=== PATIENT | female | born 1980 | race Caucasian/White ===

== ENCOUNTER 2021-11-08 08:07 | Outpatient (CLI) | payer BC, SELFPAY ==
[2021-11-08 14:19] LABS: Cholesterol* 168 mg/dL (90-199); Glucose* 99 mg/dL (60-115)
[2021-11-08 14:20] LABS: HDL Cholesterol* 58 mg/dL (>=50); LDL Cholesterol Calculated 98 mg/dL (<100); Triglycerides* 61 mg/dL (40-149)
== END 2021-11-08 08:08 | disposition home or self-care (01) ==
PROVIDERS: PCP Family Medicine; Visit Provider Registered Nurse
DX: E78.5 Hyperlipidemia, unspecified (principal); Z13.1 Encounter for screening for diabetes mellitus
CPT/HCPCS: 80061; 82947

== ENCOUNTER 2021-11-08 12:59 | Outpatient (REF) | payer BC, SELFPAY ==
[2021-11-08 14:58] LABS: Hematocrit 37.6 % (33.0-51.0); Hemoglobin* 12.6 gm/dL (12.0-16.0); Mean Corpuscular HGB Conc 34 gm/dL (32-36); Mean Corpuscular Hemoglobin 31 pg (26-34); Mean Corpuscular Volume 92 fL (80-100); Platelet Count* 208 K/uL (140-440); Red Blood Count 4.07 m/uL (4.00-5.20); White Blood Count* 5.42 K/uL (4.50-11.00)
[2021-11-08 15:00] LABS: Slide Review Reflex No
[2021-11-08 16:03] LABS: Albumin* 4.4 g/dL (3.3-5.0); Chloride* 110 mmol/L (96-114); Potassium* 4.1 mmol/L (3.6-5.1); Sodium* 139 mmol/L (135-149)
[2021-11-08 16:05] LABS: Creatinine* 0.5 mg/dL (0.5-1.5); Estimated Glomerular Filt Rate 122 ml/min
[2021-11-08 16:06] LABS: Alanine Aminotransferase* 14 U/L (4-35); Alkaline Phosphatase* 67 U/L (40-150); Aspartate Amino Transferase* 29 U/L (12-35); Bilirubin Total* 0.5 mg/dL (0.1-1.5); Blood Urea Nitrogen* 7 mg/dL (5-24); Calcium* 9.2 mg/dL (8.4-10.6); Carbon Dioxide* 23 mmol/L (20-32); Glucose* 96 mg/dL (60-115); Total Protein* 7.3 g/dL (6.0-8.3)
[2021-11-08 16:20] LABS: Free T4 Free Thyroxine* 1.12 ng/dL (0.70-1.85)
[2021-11-10 21:38] LABS: Total T3 95 ng/dL (80-200)
== END 2021-11-08 13:00 | disposition home or self-care (01) ==
LOC: NPINS 12:59
PROVIDERS: PCP Family Medicine; Visit Provider Family Medicine
DX: R07.2 Precordial pain (principal); E04.2 Nontoxic multinodular goiter
CPT/HCPCS: 80053; 84439; 84443; 84480; 85027

== ENCOUNTER 2022-06-25 10:05 | Outpatient (CLI) | payer BC, SELFPAY | END 2022-06-25 10:06 | disposition home or self-care (01) | LOC: NFLDREF 06-27 04:39 | PROVIDERS: PCP Family Medicine; Referring Provider Family Medicine; Visit Provider Registered Nurse | DX: R10.9 Unspecified abdominal pain (principal) | CPT/HCPCS: 87086 ==

== ENCOUNTER 2022-09-18 15:10 | Outpatient (CLI) | payer BC, SELFPAY ==
--- NOTE | 2022-09-18 15:00 | CRLHL7_ITS ---
For Patients: As a result of the Century Cures Act, medical imaging exams and procedure reports are released immediately into your electronic medical record. You may view this report before your referring provider. If you have questions, please contact your health care provider. BILATERAL SCREENING MAMMOGRAM WITH COMPUTER-AIDED DETECTION AND TOMOSYNTHESIS TECHNIQUE: CC and MLO views were obtained. These mammographic images have been obtained using full-field digital technique. These mammographic images were interpreted with the benefit of computer-aided detection. Breast Tomosynthesis was used in this interpretation. COMPARISON FILM: Baseline. FINDINGS: The breasts are extremely dense, which lowers the sensitivity of mammography IMPRESSION: There is no radiographic evidence for malignancy. ASSESSMENT: BI-RADS Category 1: Negative RECOMMENDATION: Routine screening mammogram in 1 year. A lay language report of this examination will be provided to the patient. Hugh Gordon M.D. Diagnostic Radiologist [email or web address] DIPTI/Dictated by: Hugh Gordon MD @ 09/19/2022 11:44:00 AM (Electronically Signed)
== END 2022-09-18 15:11 | disposition home or self-care (01) ==
LOC: MAMMO 15:11
PROVIDERS: PCP Family Medicine; Visit Provider Registered Nurse
DX: Z12.31 Encounter for screening mammogram for malignant neoplasm of breast (principal); R92.2 Inconclusive mammogram
CPT/HCPCS: 77063; 77067

== ENCOUNTER 2023-09-22 15:50 | Outpatient (CLI) | payer OTHER, SELFPAY ==
--- NOTE | 2023-09-22 15:40 | CRLHL7_ITS ---
For Patients: As a result of the Century Cures Act, medical imaging exams and procedure reports are released immediately into your electronic medical record. You may view this report before your referring provider. If you have questions, please contact your health care provider. BILATERAL SCREENING MAMMOGRAM WITH COMPUTER-AIDED DETECTION AND TOMOSYNTHESIS TECHNIQUE: CC and MLO views were obtained. These mammographic images have been obtained using full-field digital technique. These mammographic images were interpreted with the benefit of computer-aided detection. Breast tomosynthesis was used in this interpretation. COMPARISON FILM: . FINDINGS: The breasts are extremely dense, which lowers the sensitivity of mammography. IMPRESSION: There is no radiographic evidence for malignancy. ASSESSMENT: BI-RADS Category 1: Negative RECOMMENDATION: Routine screening mammogram in 1 year. A lay language report of this examination will be provided to the patient. HUGH PINON M.D. Diagnostic Radiologist [email or web address] Transcribed: 2:[address]/Dictated by: Hugh Pinon MD @ 09/23/2023 1:02:00 PM (Electronically Signed)
--- OUTSIDE RECORDS SUMMARY | 2023-09-22 15:52 | XMS_ITS | Clinical Summary ---
Author Organization [facility] [employer] [facility] Address [place], [place] [address] Care Team Providers Care Market Development Executive Name Role Phone Kerline Acosta MD Primary Care Provider [phone] Allergies Active Allergy Reactions Criticality Noted Date Comments Epinephrine Tachycardia 10/05/2014 Sulfa (Sulfonamide Antibiotics) Medications Medication Sig Dispensed Refills Start Date End Date Status medication order composerIndications :Endometriosis determined by laparoscopy Bio identical progesterone oil for treatment endometrosis 0 10/05/2014 Active ondansetron (ZOFRAN) 4 mg tabletIndications:G eneralized anxiety disorder TAKE 1 TABLET BY MOUTH EVERY 8 HOURS IF NEEDED FOR NAUSEA/VOMITING. 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 20 tablet 03/25/2017 Active sertraline (ZOLOFT) 25 mg tabletIndications:A nxiety Take 1 tablet by mouth every morning. 30 tablet 07/29/2017 Active Active Problems Problem Noted Date Diagnosed Date History of endometriosis 03/06/2021 Pain in pelvis 03/06/2021 Thyroid nodule 03/06/2021 Endometriosis determined by laparoscopy 10/06/19 Overview: 2011 per laparoscopic surgery, Dr. Zepeda Simple phobia 05/29/2009 Generalized anxiety disorder 04/14/2007 Encounters Date Type Department Care Team Description 09/01/2023 1:00 PM CDT Ancillary Procedure [facility] [address] [place] [address] 09/01/2023 Travel 08/27/2023 Transcribe Orders [facility] [address] [place] [id number] Flaca Lugo NP 08/26/2023 Transcribe Orders [facility] [address] [place] [address] Hugh Gordon MD 08/20/2023 8:15 AM CDT Ancillary Procedure [facility] [address] [place] [address] 08/20/2023 Travel 08/17/2023 Transcribe Orders [address] [place] [address] Rosendo Farnsworth MD from Last 3 Months Immunizations Name Administration Dates Next Due Hepatitis B (Peds) 05/17/1997,01/23/1997, 997 MMR 08/05/1995 Td (Age >=7 Years) 06/17/2006,08/31/1996 Tuberculin (PPD) 07/13/1998 Family History Medical History Relation Name Comments Thyroid Disease Brother 3 Graves Diabetes Father Heart Disease Father no heart attac ks, but some type of chest pain Cancer Maternal Grandmother lung Psychiatric illness Mother anxiety Stroke Paternal Grandfather Alzheim ers Relation Name Status Comments Brother 1 Alive Brother 2 Alive Brother 3 Father Alive Maternal Grandmother Mother Alive Paternal Grandfather Sister Alive Social History Tobacco Use Types Packs/Day Years Used Date Smoking Tobacco: Never Smokeless Tobacco: Never Tobacco Cessation:Counseling Given: Yes Alcohol Use Standard Drinks/Week Comments No 0 (1 standard drink = 0.6 oz pur e alcohol) Social Connections Answer Date Recorded Frequency of Communication with Friends and Fami ly Not on file 10/25/2021 Sex and Gender Information Value Date Recorded Sex Assigned at Not on file Gender Identity Not on file Sexual Orientation Not on file Obstetrics History Para Term AB IAB SAB Ectopic Multiple Livin g Live Births 0 0 0 0 0 0 0 0 0 0 Last Filed Vital Signs Vital Sign Reading Time Taken Comments Blood Pressure 105/71 10/25/2021 8:55 AM CDT Pulse 81 10/25/2021 8:55 AM CDT Temperature 36.5 ??C (97.7 ??F) 10/25/2021 8:55 AM CD T Respiratory Rate 16 05/29/2009 11:10 AM CHECK INSPECTOR Oxygen Saturation 100% 10/25/2021 8:55 AM CDT Inhaled Oxygen Concentration - - Weight 56.7 kg (125 lb) 10/25/2021 8:55 AM CDT Height 160 cm (5' 3) 10/25/2021 8:55 AM CDT Body Mass Index 22.14 10/25/2021 8:55 AM CDT Plan of Treatment Health Maintenance Due Date Last Done Comments Tdap 1992 Depression screening for age 12+ 1993 HIV for age 15-65 1996 Hepatitis C screening for age 18-79 12/25/1999 Tetanus booster 06/17/2016 06/17/2006, 08/31/1996 BMI (ht and wt on same day) for age 18+ 10/25/2022 10/25/2021 COVID-19 vaccine series (2022- season) 2022 Influenza for age 9-49 12/06/2023 Pap test for age 21-65 11/28/2024 , 11/28/2021, 08/11/2016, Additional history exists Pneumococcal series for age 6-64 Aged Out No longer eligible based on patient's age to complete this topic Procedures Procedure Name Priority Date/Time Associated Diagnosis Comments US PELVIS COMPLETE TV Routine 09/01/2023 2:21 PM CDT Pelvic and perineal pain US THYROID/PARATHYROID Routine 08/20/2023 8:48 AM CDT Nontoxic single thyroid nodule HPV THIN PREP Routine 11/28/2021 12:00 PM CDT from Last 3 Months or Most Recently Relevant to Health Maintenance Results * US PELVIS COMPLETE TV (09/01/2023 2:21 PM CDT) Anatomical Region Laterality Modality Pelvis, OVARIES, UTERUS Ultrasou nd 09/02/2023 9:32 AM CDT Impressions 09/02/2023 9:32 AM CDT 1 cm fundal leiomyoma is unchanged. Otherwise normal pelvic ultrasound. Dictated by Durga Garcia MD @ 09/02/2023 9:32:46 AM (Electronically Signed) Narrative 09/02/2023 9:32 AM CDT For Patients: ??As a result of the Cures Act, medical imaging exams and procedure reports are released immediately into your electronic medical record. ??You may view this report before your referring provider. ??If you have questions, please contact your health care provider. INDICATION: Pelvic and perineal pain. History of endometriosis. TECHNIQUE: Transvaginal pelvic ultrasound. FINDINGS: Uterus is anteverted and measures 7.1 x 3.6 x 4.1 cm. Normal endometrial stripe thickness of 1 cm. 1 cm leiomyoma in the fundus is unchanged from 08/19/2022. Both ovaries appear normal with normal color and spectral Doppler flow. No adnexal mass or free fluid. Procedure Note Durga Garcia MD - 09/02/2023 For Patients: As a result of the Cures Act, medical imagingexams and procedure reports are released immediately into your electronicmedical record. You may view this report before your referring provider.If you have questions, please contact your health care provider. INDICATION: Pelvic and perineal pain. History of endometriosis. TECHNIQUE: Transvaginal pelvic ultrasound. FINDINGS: Uterus is anteverted and measures 7.1 x 3.6 x 4.1 cm. Normal endometrialstripe thickness of 1 cm. 1 cm leiomyoma in the fundus is unchanged from08/19/2022. Both ovaries appear normal with normal color and spectralDoppler flow. No adnexal mass or free fluid. IMPRESSION: 1 cm fundal leiomyoma is unchanged. Otherwise normal pelvic ultrasound. Dictated by Durga Garcia MD @ 09/02/2023 9:32:46 AM (Electronically Signed) Flaca Lugo NP US * US THYROID/PARATHYROID (08/20/2023 8:48 AM CDT) Anatomical Region Laterality Modality THYROID Ultrasound 08/20/2023 3:42 PM CDT Impressions 08/20/2023 3:42 PM CDT Stable TR 2 nodules left thyroid lobe. Dictated by Hugh Gordon MD @ 08/20/2023 3:42:06 PM (Electronically Signed) Narrative 08/20/2023 3:42 PM CDT For Patients: ??As a result of the Cures Act, medical imaging exams and procedure reports are released immediately into your electronic medical record. ??You may view this report before your referring provider. ??If you have questions, please contact your health care provider. INDICATION: Thyroid nodule COMPARISON: 08/19/2022 TECHNIQUE: Chau scale and color Doppler images were acquired of the thyroid gland. FINDINGS: Mostly cystic nodule left thyroid lobe measures 10 x 8 x 6 millimeters, previously measuring 10 x 7 x 6 millimeters. Additional mostly cystic nodule left thyroid lobe nodule measures 8 x 7 x 6 millimeters, previously measuring 8 x 5 x 5 millimeters. The isthmus measures 1.8 millimeter. The right lobe measures 4.1 x 1.2 x 1.2 cm and the left lobe measures 4.0 x 1.2 x 1.2 cm in size. The color Doppler images demonstrate normal vascularity. There is no evidence of cervical lymphadenopathy or parathyroid mass. Procedure Note Hugh Gordon MD - 08/20/2023 For Patients: As a result of the Cures Act, medical imagingexams and procedure reports are released immediately into your electronicmedical record. You may view this report before your referring provider.If you have questions, please contact your health care provider. INDICATION: Thyroid nodule COMPARISON: 08/19/2022 TECHNIQUE: Chau scale and color Doppler images were acquired of the thyroid gland. FINDINGS: Mostly cystic nodule left thyroid lobe measures 10 x 8 x 6 millimeters,previously measuring 10 x 7 x 6 millimeters. Additional mostly cysticnodule left thyroid lobe nodule measures 8 x 7 x 6 millimeters, previouslymeasuring 8 x 5 x 5 millimeters. The isthmus measures 1.8 millimeter. Theright lobe measures 4.1 x 1.2 x 1.2 cm and the left lobe measures 4.0 x1.2 x 1.2 cm in size. The color Doppler images demonstrate normalvascularity. There is no evidence of cervical lymphadenopathy orparathyroid mass. IMPRESSION: Stable TR 2 nodules left thyroid lobe. Dictated by Hugh Gordon MD @ 08/20/2023 3:42:06 PM (Electronically Signed) Rosendo Farnsworth MD * HPV HIGH RISK (11/28/2021 12:00 PM CDT) TYPE 16 Negative Negative 12/02/2021 1:26 PM CDT [facility] TYPE 18 Negative Negative 12/02/2021 1:26 PM CDT [facility] OTHER HIGH RISK TYPES Negative Negative 12/02/2021 1:26 PM CDT [facility] Other (Cervical) 11/28/2021 12:00 PM CDT 11/28/2021 4:16 PM CDT Narrative [facility] - 12/02/2021 1:26 PM CDT HPV types 16, 18, 31, 33, 35, 39, 45, 51, 52, 56, 58, 59, 66 and 68 DNA were undetectable or below the pre-set threshold. Methodology: Lizette Amber 4800 HPV Test Flaca Lugo AUTOCAD TECHNICIAN MICROBIOLOGY [facility] [address] [place] [address], [place] from Last 3 Months or Most Recently Relevant to Health Maintenance Care Teams Market Development Executive Relationship Specialty Start Date End Date Kerline Acosta MD [address] [place] [address] PCP - General Family Practice 11/08/21
--- OUTSIDE RECORDS SUMMARY | 2023-09-22 15:53 | XMS_ITS | Data Portability ---
Author Organization [place] - [facility], MAIN OFFICE Address [address] [place] [address] Assessment No assessment recorded. Plan of Treatment Reminders Order Date Submit Date Provider Last Modified By Organization Details Last Modified Time Details Appointments None recorded. Lab None recorded. Referral None recorded. Procedures None recorded. Surgeries None recorded. Imaging US, thyroid 2020 021 MATT [facility], [address], [address], [place], [address], 17:43:50 US, pelvis, transabdomi nal + transvagina l 2020 021 [email or web address] [facility], [address], [address], [place], [address], 08:02:44 Medication Orders None recorded. Patient TargetsNo targets recorded. Patient InstructionsNo instructions recorded. Reason for Referral None Reported. Results Created Date Observation Date Name Description Value Unit Range Abnormal Flag LastModifiedBy Organization Detail LastModifiedTime 03/06/20 21 US, thyro id No observ ation record ed. [facility] [address], [place], [address], 03/06/2021 17:48:44 03/15/20 21 US, pelvi s, trans abdom inal + trans vagin al No observ ation record ed. [email or web address] [facility] [address], [place], [address], 03/15/2021 09:05:30 04/29/19 22 04/29/2021 US, pelvi s, trans abdom inal + trans vagin al No observ ation record ed. Not Available 2 08:10:34 04/29/19 22 04/29/2021 US, pelvi s, trans abdom inal + trans vagin al No observ ation record ed. [email or web address] Not Available 2 08:10:34 Result Notes None recorded. Problems Name Status Onset Date Resolution Date Notes Provider Name and Address Organization Details Recorded Time Endometritis Completed 012 03/06/2021 Viktor Jain MD [address], [place], [address] , [facility] 03/06/2021 15:22:47 History of endometriosis Active 021 Viktor Jain MD [address], [place], [address] , [facility] 03/06/2021 15:22:58 Pain in pelvis Active 021 Viktor Jain MD [address], [place], [address] , [facility] 03/06/2021 15:25:21 Thyroid nodule Active 021 Viktor Jain MD [address], [place], [address] , [facility] 03/06/2021 15:26:07 Problem Notes None recorded. Procedures Surgical History Date Name Laterality Status Provider Name and Address Organization Details Recorded Time 04/06/2018 Date of Last Pap Smear completed PARUL [facility]HERF[facility] 03/06/2021 14:31:02 Imaging Results Imaging Date Name Status LastModified by Organization Details LastModified Time 03/06/2021 US, thyroid completed [facility] [place] [address] [place] [address] [address], [place], [address], 03/06/2021 17:48:44 03/15/2021 US, pelvis, transabdominal + transvaginal completed [email or web address] [facility] [address], [place], [address], 03/15/2021 09:05:30 04/29/2021 US, pelvis, transabdominal + transvaginal completed [email or web address] Information not available 05/01/2021 08:10:34 04/29/2021 US, pelvis, transabdominal + transvaginal completed [email or web address] Information not available 05/01/2021 08:10:34 Procedure Notes None recorded. Medical Equipment None Reported. Allergies Allergen ID Allergen Name Allergen Category Reaction Reaction Severity Criticality Documentation Date Start Date Code Code System Note Provider Name and Address Organization Details Recorded Time 1012 epinephri ne medicatio n other severe high 03/06/2021 3992 [facility] 14:[facility] Medications Name Sig Start Date Stop Date Status Note LastModified by Organization Details LastModified Time lorazepam 0.5 mg tablet Take 1 tablet by oral route for 30 days. active Not Available Not Available No t Available ondansetron 4 mg disintegrating tablet active Not Available Not Available Not Available sertraline 50 mg tablet Take 1 tablet every day by oral route for 90 days. active Not Available Not Available No t Available Vitals Date Recorded Body height Heart rate Respiratory rate Body temperature Body mass index (BMI) Body weight Oxygen saturation Oxygen saturation in Arterial blood by Pulse oximetry Systolic blood pressure Diastolic blood pressure Provider Name and Address Organization Details Last Updated DateTime 160.02 cm 85 /min 18 /min 97.3 [degF] 22.5 kg/m2 88348.2 3 g 98 % 98 % 119 mm[Hg] 79 mm[Hg] PARUL RUTHERFORD [facility] 14:36:58 Social History Question Answer Notes LastModified by Organizat ion Details LastModified Time Tobacco Smoking Status Never Smoker [facility] 03/06/2021 14:17:36 Do You Have An Advance Directive? No [email or web address] Information n ot available 03/06/2021 What Is Your Level Of Alcohol Consumption? None [email or web address] Information not available 03/06/2021 Do You Wear A Helmet When Biking? Yes [email or web address] Information not available 03/06/2021 Are You Blind Or Do You Have Difficulty Seeing? No [email or web address] Information n ot available 03/06/2021 Is Blood Transfusion Acceptable In An Emergency? No [email or web address] Information not available 03/06/2021 What Is Your Level Of Caffeine Consumption? None [email or web address] Information not available 03/06/2021 What Type Of Detective Lieutenant Do You Use? None Information not available 03/06/2021 In The 14 Days Before Symptom Onset, Have You Had Close Contact With A Laboratory-confirm ed COVID-19 While That Case Was Ill? No [email or web address] Information n ot available 03/06/2021 In The 14 Days Before Symptom Onset, Have You Had Close Contact With A Person Who Is Under Investigation For COVID-19 While That Person Was Ill? No [email or web address] Information not available 03/06/2021 Have You Been To An Area Known To Be High Risk For COVID-19? No Information not available 03/06/2021 Are You Currently Employed? Yes [email or web address] Information not available 03/06/2021 Are You Deaf Or Do You Have Serious Difficulty Hearing? No [email or web address] Information not available 03/06/2021 What Type Of Diet Are You Following? GLUTENFREE Vegan [email or web address] Information n ot available 03/06/2021 Have You Processed Blood Or Body Fluids From An Ebola Virus Disease Patient Without Appropriate PPE? No Information not available 03/06/2021 Do You Reside In Or Have You Traveled To An Area Where Ebola Virus Transmission Is Active? No [email or web address] Information not available 03/06/2021 What Is The Highest Grade Or Level Of School You Have Completed Or The Highest Degree You Have Received? 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 4 Information not available 03/06/2021 Have There Been Any Changes To Your Family Or Social Situation? No [email or web address] Information no t available 03/06/2021 What Is The Fluoride Status Of Your Home? Fluoridated [email or web address] Information not available 03/06/2021 Are There Any Guns Present In Your Home? No [email or web address] Information not available 03/06/2021 Have You Recently Or Are You Planning To Travel To An Area With Zika Virus? No [email or web address] Information not available 03/06/2021 Do You Use Insect Repellent Routinely? Yes [email or web address] Information not available 03/06/2021 What Was The Date Of Your Most Recent Tobacco Screening? 03/06/2021 [email or web address] Information not available 03/06/2021 Do You Have Any Pets? Yes [email or web address] Information not available 03/06/2021 Do You Use Protection During Sex? No [email or web address] Information not available 03/06/2021 What Is Your Relationship Status? [email or web address] Information not available 03/06/2021 Do You Use Your Seat Belt Or Car Seat Routinely? Yes [email or web address] Information not available 03/06/2021 Are You Sexually Active? Yes [email or web address] Information not available 03/06/2021 Do You Have Smoke And Carbon Monoxide Detectors In Your Home? Yes [email or web address] Information not available 03/06/2021 Are You Passively Exposed To Smoke? No [email or web address] Information no t available 03/06/2021 Do You Feel Stressed (tense, Restless, Nervous, Or Anxious, Or Unable To Sleep At Night)? [id number] [email or web address] Information not available 03/06/2021 Do You Use Any Illicit Or Recreational Drugs? No [email or web address] Information not available 03/06/2021 Do You Use Sunscreen Routinely? Yes [email or web address] Information not available 03/06/2021 Do You Or Have You Ever Used Any Other Forms Of Tobacco Or Nicotine? No [email or web address] Information not available 03/06/2021 Sex: Female Functional Status Question Answer Note LastModified by Organizat ion Details LastModified Time Do you have difficulty walking or climbing stairs? No [email or web address] Information not available 03/06/2021 Do you have transportation difficulties? No [email or web address] Information not available 03/06/2021 Are you able to walk? YESWOREST [email or web address] Information not available 03/06/2021 Do you have difficulty doing errands alone? No Information not available 03/06/2021 Are you able to care for yourself? Yes [email or web address] Information n ot available 03/06/2021 Do you have difficulty dressing or bathing? No [email or web address] Information not available 03/06/2021 What is your exercise level? Moderate yoga, walking [email or web address] Information not available 03/06/2021 Mental Status Question Answer Note LastModified by Organization D etails LastModified Time Do you have difficulty concentrating, remembering or making decisions? No [email or web address] Information no t available 03/06/2021 Family History Nothing Reported. Medical History Condition Response Coronary Artery Disease N Other N Gout N Kidney Stones N Blood Diseases N Hyperthyroidism N Breast Cancer N Blood Transfusion N COPD N Depression Y Lung Disease N Hypothyroidism N Defects or Inherited Disease N Developmental or Behavioral Disorders N Breast Problem N Difficulty Swallowing N Anesthesia Complications N Meniere's disease N Anxiety Disorder N Muscle, Joint, or Bone Problems N Obesity N Vision or Eye Problems N Arthritis N Polyps N Infertility N Mental Disorder N Cancer N Varicosities N Stroke N Endometriosis Y Bladder or Kidney Problems N High Cholesterol N Liver Disease N Fibromyalgia N Headaches Y Kidney Disease N Allergies/Hayfever N Heart Problems N Ear or Hearing Problems N Hospitalizations N Thyroid Problems N GI Problems N ADD/ADHD N Skin Problems N Eating Disorder N Anemia N MRSA exposure N Constipation N Mental Illness N Ovarian Cancer N Diabetes N Bedwetting N Seizures/Epilepsy N Tuberculosis N AIDS/HIV N Congestive Heart Failure (CHF) N Eczema N Diverticulitis N Abuse/Domestic Violence N Asthma N Reflux/GERD N Hepatitis N Heart Disease N Pulmonary Embolism N Pre-Eclampsia N Hypertension N Chronic Ear Infections N Osteoporosis N Chicken Pox N Autism Spectrum Disorder (ASD) N Thrombophilias N Gynecological History Statement/Question Response Abnormal Pap N Flow Moderate Date of LMP 02/20/2021 On BCP's at Conception? N Post Menopausal Bleeding N STIs/STDs N HPV Vaccine N Duration of Flow (days) 4 Current Control Method None Age at First Child 13 Frequency of Cycle (Q days) 30 Sexually Active? Y Menses Monthly Y Date of Last Pap Smear 04/06/2018 Sexual Problems? Y LMP Approximate Hormone Replacement Therapy N Obstetrics History GPAL:G 0 P 0 0 0 0 Type Value Living 0 Total 0 Past Encounters Encounter ID Performer Location Encounter Start Date Encounter Closed Date Diagnosis/Indication Diagnosis SNOMED-CT Code [id number] Viktor Jain MD MAIN OFFICE [address] [place] [address] 03/06/2021 13:59:18 03/06/2021 15:29:09 Pain in pelvis 21971347 Thyroid nodule 680719472 History of endometriosis [id number] 07 Anxiety 37541235 Health Concerns Section Related Observation LastModified by Organization Detai ls LastModified Time None Recorded Concern Status LastModified by Organization Details LastModified Time None Recorded Advance Directives Directive N: Payers Encounter Date Sequence Insurance Name Policy Number Policy [employer] Covered Member ID [employer] Member ID Guarantor Name 03/06/2021 SLIDING FEE SCHEDULE - DISCOUNT Hilaria Aldana Notes Date Note Type Note Provider Name and Address Organization Details Recorded Time 03/06/2021 text/html HPI Notes: Pelvi c Pain Reported by patient. Location: suprapubic Onset/Timin-2 months; intermittent episodes lasting: Duration: intermittent Quality: dull; stabbing; pressure; throbbing; worsening Severity: moderate Context: occurs with menstrual cycle Alleviating Factors: none Aggravating Factors: none Associated Symptoms: no back pain; no chills; no constipation; no diarrhea; no vaginal discharge; no pain with urination; normal emptying of bladder; no feelings of urgency; no blood in the urine; normal libido; no fever; no nausea; no vomiting; no nocturia; no sexual abuse; no ectopic pregnancies; no urinary frequency; no vaginal itching or irritation; no dyspareunia; abdominal pain; endometriosis Thyroid/Parathyroid Nodule Reported by patient. Location: bilateral Duration: >12 months Status: new nodules Identified: patient identified mass; found on physician exam; ultrasound Associated Symptoms: no fever; no pain; no hoarseness; no dysphagia; no dyspnea; no palpitations; no weight gain; no involuntary weight loss; no fatigue; normal mood; no abdominal pain Viktor Jain MD [address] [facility] [address], [place], [address], [facility] 03/06/2021 15:27:36 OBGyn Episode No OBEpisode recorded.
== END 2023-09-22 15:51 | disposition home or self-care (01) ==
LOC: MAMMO 15:51
PROVIDERS: PCP Family Medicine; Visit Provider Registered Nurse
DX: Z12.31 Encounter for screening mammogram for malignant neoplasm of breast (principal); R92.2 Inconclusive mammogram
CPT/HCPCS: 77063; 77067

== ENCOUNTER 2024-08-18 09:18 | Outpatient (CLI) | payer OTHER, SELFPAY ==
--- NOTE | 2024-08-18 09:15 | CRLHL7_ITS ---
For Patients: As a result of the Century Cures Act, medical imaging exams and procedure reports are released immediately into your electronic medical record. You may view this report before your referring provider. If you have questions, please contact your health care provider. INDICATION: BILATERAL SCREENING MAMMOGRAM, ASYMPTOMATIC 43 Y/O FEMALE COMPARISON: 09/22/2023, 09/18/2022 TECHNIQUE: Digital mammogram in CC and MLO projections including computer-aided detection (CAD) and tomosynthesis. BREAST COMPOSITION: The breasts are heterogeneously dense, which may obscure small masses. FINDINGS: No suspicious findings. ASSESSMENT: BI-RADS 1 Negative RECOMMENDATION: Annual screening mammogram. A lay language report of this examination will be provided to the patient. Dictated by: Hugh Gordon MD @ 08/18/2024 10:32:58 (Electronically Signed)
== END 2024-08-18 09:19 | disposition home or self-care (01) ==
PROVIDERS: PCP Family Medicine; Visit Provider Registered Nurse
DX: Z12.31 Encounter for screening mammogram for malignant neoplasm of breast (principal); R92.333 Mammographic heterogeneous density, bilateral breasts
CPT/HCPCS: 77063; 77067